=== PATIENT | female | born 1960 | race Caucasian/White ===

== ENCOUNTER 2018-10-23 10:25 | Emergency (ER) | payer MEDICAID, OTHER ==
[~2018-10-23] VITALS: Ht 167.6 cm; Wt 136.1 kg
[2018-10-23 10:45] VITALS: BP 167/83
--- NOTE | 2018-10-23 10:46 | NUR ---
Patient ambulated to bed 3. RN evaluating patient at bedside.
--- NOTE | 2018-10-23 10:57 | NUR ---
Dr. Arzate is evaluating the patient at bedside.
--- NOTE | 2018-10-23 11:09 | NUR ---
PT BIB WITH C/O RT KNEE PAIN SINCE YESTERDAY. STATES PAIN GETS WORSE WITH WALKING OR STANDING, PAIN 8/10 AT THIS TIME. WAS WHEELED TO BED BY RN. TOOK IBUPROFEN AT HOME YESTERDAY FOR PAIN. PT ABLE TO MOVE HER LEG, CMS INTACT AT RT LEG. NO SWELLING, REDNESS, WARMTH , NON-TENDERNESS. PT LYING ON HER BED. ER MD TO SEE THE PT. WILL CONTINUE TO MONITOR PT. HX- UTERINE CA RX--NONE NKA
--- NOTE | 2018-10-23 11:28 | NUR ---
Dr. Arzate is re-evaluating the patient at bedside.
[2018-10-23] MEDS ORDERED: MORPHINE SULFATE 4 MG/ML SYR IM ONE (11:35)
[2018-10-23] MEDS ORDERED: KETOROLAC 60 MG/2 ML VIAL IM ONE (11:35)
--- NOTE | 2018-10-23 12:30 | NUR ---
EMT APPLYING SPLINT ON RT KNEE . PT STATES PAIN 07/13. MEDS HELPED WITH LOWERING PAIN .
[2018-10-23 13:10] VITALS: BP 145/75
--- NOTE | 2018-10-23 13:10 | NUR ---
Patient discharged with v/s stable. Written and verbal after care instructions given and explained. Patient alert, oriented and verbalized understanding of instructions. Wheel Chair Assisted with to car. All questions addressed prior to discharge. ID band removed. Patient advised to follow up with PMD. Rx of VOLTAREN XR given. Patient educated on indication of medication including possible reaction and side effects. Opportunity to ask questions provided and answered.
== END 2018-10-23 13:10 | disposition home or self-care (01) ==
LOC: MED 10:25
DX: S83.411A Sprain of medial collateral ligament of right knee, initial encounter (principal); Z85.42 Personal history of malignant neoplasm of other parts of uterus; X58.XXXA Exposure to other specified factors, initial encounter; Y93.89 Activity, other specified; Y92.89 Other specified places as the place of occurrence of the external cause; Y99.8 Other external cause status
CPT/HCPCS: 29505; 73562; 96372; 99283; J1885; J2270

== ENCOUNTER 2022-07-15 16:17 | Emergency (ER) | payer MEDICAID, OTHER ==
[~2022-07-15] VITALS: Ht 165.1 cm; Wt 135.2 kg
[2022-07-15 17:05] VITALS: BP 167/78
--- NOTE | 2022-07-15 18:29 | NUR ---
PT AMBULATED TO BED 5
[2022-07-15] MEDS ORDERED: IBUP-2213 PO (19:02)
[2022-07-15] MEDS ORDERED: PRED20TA5 PO (19:02)
[2022-07-15] MEDS ORDERED: DIPH25TA53 PO (19:02)
[2022-07-15] MEDS: diphenhydrAMINE 50 MG CAP PO ONE (19:07)
[2022-07-15 19:22] VITALS: BP 167/78
--- NOTE | 2022-07-15 19:23 | NUR ---
Patient discharged with v/s stable. Written and verbal after care instructions given and explained. Patient verbalized understanding. Ambulatory with steady gait to car accompanied by son. All questions addressed prior to discharge. Advised to follow up with PMD.
== END 2022-07-15 19:22 | disposition home or self-care (01) ==
LOC: MED 16:17
DX: T78.49XA Other allergy, initial encounter (principal); R51.9 Headache, unspecified; E11.9 Type 2 diabetes mellitus without complications; I10 Essential (primary) hypertension; Z85.42 Personal history of malignant neoplasm of other parts of uterus; Z90.710 Acquired absence of both cervix and uterus; X58.XXXA Exposure to other specified factors, initial encounter
CPT/HCPCS: 99283; Q0163